=== PATIENT | male | born 1975 | race Caucasian/White ===

== ENCOUNTER 2020-01-25 04:25 | Day surgery (SDC) | payer OTHER ==
[2020-01-22 18:46] VITALS: BMI 32.3
[2020-01-25] MEDS ORDERED: MIDAZOLAM HCL 2 MG/2 ML SINGLE DOSE VIAL ONE ×2 (10:28→10:31)
[2020-01-25 11:32] VITALS: TEMP 96.8
[2020-01-25 11:44] VITALS: BP 122/73; PULSE 59
--- NOTE | 2020-01-25 12:07 | OP ---
Operative Note - Note: Operative Date: 01/25/20 Pre-Operative Diagnosis: Right renal stone Operation: Right ESWL Findings: 8 mm mid pole Right renal stone Post-Operative Diagnosis: Same as Pre-op Surgeon: Edward Phelan Anesthesia: Regional Estimated Blood Loss (mls): 0 Operative Report Dictated: Yes
--- NOTE | 2020-01-25 19:03 | OP ---
DATE OF OPERATION: 01/25/2020 PREOPERATIVE DIAGNOSIS: Right renal stone. POSTOPERATIVE DIAGNOSIS: Right renal stone. PROCEDURE: Right extracorporeal shockwave lithotripsy. ATTENDING: Daisy Phelan M.D. ANESTHESIA: Fractional. DESCRIPTION OF PROCEDURE: Patient was brought in the operating room, placed in a supine position on the operating room table. Ultrasonography and fluoroscopy were then performed. An 8-mm right mid pole stone was identified. Anesthesia and preoperative antibiotics were then administered. Shockwave lithotripsy was then started. 2500 impulses at 18 joules of power were administered to the stone under realtime ultrasonographic and fluoroscopic visualization. Excellent fragmentation noted. No complications were noted. The patient tolerated the procedure very well. DISPOSITION: To recovery room. DAISY ZHANG M.D. [id number]
== END 2020-01-25 12:30 | disposition home or self-care (01) ==
LOC: JASU-SURG 04:25
PROVIDERS: ATTEND Urology
PROC: 0TF3XZZ Fragmentation in Right Kidney Pelvis, External Approach (ICD-10-PCS; principal; 2020-01-25 10:00)
DX: N20.0 Calculus of kidney (principal)